=== PATIENT | female | born 1965 | race Caucasian/White ===

== ENCOUNTER 2019-02-26 00:40 | Observation (INO) ==
[2019-02-26] MEDS ORDERED: NS 1000 ML 1,000 ML ONE ×3 (00:48→03:36)
[2019-02-26] MEDS ORDERED: ZOFRAN INJ 4 MG VIAL ONE ×2 (00:49→16:18)
[2019-02-26] MEDS ORDERED: NS 1000 ML 1,000 ML IV ONE ×2 (00:59→02:27)
[2019-02-26] MEDS ORDERED: ZOFRAN INJ 4 MG VIAL IVP ONE ×2 (00:59→02:42)
[2019-02-26 01:20] LABS: BASOPHILS % (AUTO) 0.4 % (0.2-1.0); EOSINOPHILS % (AUTO) 0.5 % (0.9-2.9); HEMATOCRIT 50.6 % (36.0-47.0); HEMOGLOBIN 17.2 g/dL (12.0-16.0); LYMPHOCYTES # (AUTO) 1.2 X10^3/uL (1.3-2.9); LYMPHOCYTES % (AUTO) 20.5 % (21.0-51.0); MEAN CORPUSCULAR HEMOGLOBIN 29.3 pg (27.0-34.0); MEAN CORPUSCULAR VOLUME 86.3 fL (80.0-100.0); MEAN PLATELET VOLUME 8.4 fL (7.4-11.0); MONOCYTES # (AUTO) 0.7 x10^3/uL (0.3-0.8); MONOCYTES % (AUTO) 11.8 % (0.0-13.0); NEUTROPHILS # (AUTO) 3.9 x10^3/uL (2.2-4.8); NEUTROPHILS % (AUTO) 66.8 % (42.0-75.0); PLATELET COUNT 343 X10^3/uL (150.0-450.0); RED BLOOD COUNT 5.87 X10^6/uL (3.5-5.4); RED CELL DISTRIBUTION WIDTH 13.8 % (11.6-16.5); WHITE BLOOD COUNT 5.8 X10^3/uL (3.6-10.0)
[2019-02-26 01:39] LABS: BLOOD UREA NITROGEN 56 mg/dL (7-18); CALCIUM 10.7 mg/dL (8.5-10.1); CHLORIDE 92 mmol/L (98-107); COR NA(FOR HYPERGLY) 132 mmol/L (136-145); CREATININE 2.05 mg/dL (0.55-1.02); SODIUM 132 mmol/L (136-145); TROPONIN I < 0.02 ng/mL (0-1.5); eGFR NON BLACK RACES 27 (>60)
[2019-02-26 01:44] LABS: ALANINE AMINOTRANSFERASE 33 Units/L (12-78); ALBUMIN 4.5 g/dL (3.4-5.0); ALKALINE PHOSPHATASE 110 Units/L (46-116); ASPARTATE AMINO TRANSFERASE 38 Units/L (15-37); CKMB % 0.9 % (<4); CREATINE KINASE 379 Units/L (26-192); CREATINE KINASE MB 3.4 ng/mL (0-4.0); TOTAL PROTEIN 9.6 g/dL (6.4-8.2)
[2019-02-26 01:46] VITALS: BMI 22.3
--- NOTE | 2019-02-26 02:41 | DR.NAUSEAF ---
HPI Time Seen Time Seen by Provider: 02/26/19 02:19 Primary Care Physician Primary Care Physician: CRISTIAN HPI Comment HPI Comment: Patient presents with complaint of vomiting and diarrhea for four days. She admits to abdominal pain. Denies fever. Complaints Chief Complaint Doctors Comments: vomiting and diarrhea Chief Complaint:: N/V/D O/S SATURDAY, INT. SUBSTERNAL CHEST PAIN. WEAK, AND CRAMPING. Source History Provided: Patient Mode of Arrival Mode of Arrival: Ambulatory Timing Onset of Chief Complaint: 02/22/19 PMH PMH Past Medical History: Yes Past Medical History: Depression, Dyslipidemia and Hypertension Past Surgical History: Yes Surgical History: Appendectomy and Ortho Surgery Family History History of Family Medical Conditions: Yes Family Medical History: Coronary Artery Disease Social History Does patient currently use any type of tobacco product: Yes Have you used tobacco products in the last 12 months: Yes Type of Tobacco Use: Cigarettes Does any household member use tobacco: Yes Alcohol Use: None Do you use any recreational Drugs:: No Lives With: Family Lives Where: Home infectious screening In the last 2 months have you had wt loss of >10#?: NO Have you had fever, night sweats or hemotysis?: No Have you traveled outside the country in the last 6 months?: No Isolation: Standard ROS Review of Systems Constitutional: No Symptoms Reported Eyes: No Symptoms Reported ENTM: No Symptoms Reported Respiratoy: No Symptoms Reported Cardiovascular: No Symptoms Reported Neurological: No Symptoms Reported Musculoskeletal: No Symptoms Reported Integumentary: No Symptoms Reported Hematologic/Lymphatic: No Symptoms Reported Endocrine: No Symptoms Reported Psychiatric: No Symptoms Reported All Other Systems: Reviewed and Negative PE Vital Signs Vitals: Temperature 98.5 F Pulse Rate [Left] 90 Pulse Rate 92 Respiratory Rate 18 Blood Pressure [Right Arm] 136/73 Blood Pressure 129/57 O2 Sat by Pulse Oximetry 96 General Limitations: No Limitations General Appearance: Alert and In No Apparent Distress Head Head Exam: Normal Inspection, Atraumatic and Normocephalic Eyes Eye exam: Normal Appearance, PERRL and EOMI ENT ENT Exam: Normal Exam and Normal Oropharynx Neck Neck Exam: Normal Inspection, Full ROM and Trachea Midline Chest Chest Inspection: Normal Inspection and Symmetric Chest Wall Rise Respiratory Respiratory Exam: Normal Lung Sounds Bilat Respiratory Exam: Bilateral: Clear to Auscultation Cardiovascular Cardiovascular Exam: Regular Rate and Normal Rhythm Abdominal Exam Abdominal Exam: Normal Inspection, Normal Bowel Sounds and Soft Abdominal Tenderness: RUQ, RLQ and LUQ Rectal Rectal Exam: Deferred and Normal Inspection External Exam: Female: Deferred : Bimanual Exam (female): Deferred Extremities Extremities Exam: Normal Inspection and Full ROM Back Back Exam: Normal Inspection and Full ROM Neurologic Neurological Exam: Alert, Oriented X3 and CN II-XII Intact Psychiatric Psychiatric Exam: Normal Affect and Normal Mood Skin Skin Exam: Warm, Dry and Intact COURSE Consultation Called: 03:15 Consultation Comments: Dr. Mendieta agreed to admit for further treatment and evaluation ROR Labs Reviewed Laboratory Results Reviewed?: Yes Result Diagrams: 02/26/19 00:56 02/26/19 00:56 Laboratory: WBC 5.8 X10^3/uL (3.6-10.0) 02/26/19 00:56 RBC 5.87 X10^6/uL (3.5-5.4) H 02/26/19 00:56 Hgb 17.2 g/dL (12.0-16.0) H 02/26/19 00:56 Hct 50.6 % (36.0-47.0) H 02/26/19 00:56 MCV 86.3 fL (80.0-100.0) 02/26/19 00:56 MCH 29.3 pg (27.0-34.0) 02/26/19 00:56 MCHC 34.0 g/dL (33.0-35.0) 02/26/19 00:56 RDW 13.8 % (11.6-16.5) 02/26/19 00:56 Plt Count 343 X10^3/uL (150.0-450.0) 02/26/19 00:56 MPV 8.4 fL (7.4-11.0) 02/26/19 00:56 Neut % (Auto) 66.8 % (42.0-75.0) 02/26/19 00:56 Lymph % (Auto) 20.5 % (21.0-51.0) L 02/26/19 00:56 [place] % (Auto) 11.8 % (0.0-13.0) 02/26/19 00:56 Eos % (Auto) 0.5 % (0.9-2.9) L 02/26/19 00:56 Baso % (Auto) 0.4 % (0.2-1.0) 02/26/19 00:56 Neut # (Auto) 3.9 x10^3/uL (2.2-4.8) 02/26/19 00:56 Lymph # (Auto) 1.2 X10^3/uL (1.3-2.9) L 02/26/19 00:56 [place] # (Auto) 0.7 x10^3/uL (0.3-0.8) 02/26/19 00:56 Eos # (Auto) 0.0 x10^3/uL (0.0-0.2) 02/26/19 00:56 Baso # (Auto) 0.0 X10^3/uL (0.0-0.1) 02/26/19 00:56 Absolute Nucleated RBC 0.1 /100WBC 02/26/19 00:56 Sodium 132 mmol/L (136-145) L 02/26/19 00:56 Corrected Sodium 132 mmol/L (136-145) L 02/26/19 00:56 Potassium 3.9 mmol/L (3.5-5.1) 02/26/19 00:56 Chloride 92 mmol/L (98-107) L 02/26/19 00:56 Carbon Dioxide 22.0 mmol/L (21-32) 02/26/19 00:56 BUN 56 mg/dL (7-18) H 02/26/19 00:56 Creatinine 2.05 mg/dL (0.55-1.02) H 02/26/19 00:56 Est GFR (MDRD) Af Amer 32 (>60) L 02/26/19 00:56 Est GFR (MDRD) Non-Af 27 (>60) L 02/26/19 00:56 Glucose 119 mg/dL (65-99) H 02/26/19 00:56 Calcium 10.7 mg/dL (8.5-10.1) H 02/26/19 00:56 Corrected Calcium TNP 02/26/19 00:56 Total Bilirubin 0.30 mg/dL (0.2-1.0) 02/26/19 00:56 AST 38 Units/L (15-37) H 02/26/19 00:56 ALT 33 Units/L (12-78) 02/26/19 00:56 Alkaline Phosphatase 110 Units/L (46-116) 02/26/19 00:56 Creatine Kinase 379 Units/L (26-192) H 02/26/19 00:56 CK-MB (CK-2) 3.4 ng/mL (0-4.0) 02/26/19 00:56 CK/CKMB % Calc 0.9 % (<4) 02/26/19 00:56 Troponin I < 0.02 ng/mL (0-1.5) 02/26/19 00:56 Total Protein 9.6 g/dL (6.4-8.2) H 02/26/19 00:56 Albumin 4.5 g/dL (3.4-5.0) 02/26/19 00:56 Globulin 5.1 g/dL (2.5-4.5) H 02/26/19 00:56 Albumin/Globulin Ratio 0.9 Ratio (1.1-2.1) L 02/26/19 00:56 Other Results Comments: Chest: Abnormal bowel gas pattern within the left lower quadrant small bowel and within the colon is most consistent with an acute enterocolitis. There is no evidence of obstructive bowel pattern. XRAY XRAY Interpreted by: Radiologist Diagnosis Discharge Problem: Dehydration ADDITIONAL NOTES Additional Notes Additional Notes: Patient admitted to the service of Dr. Mendieta
[2019-02-26] MEDS ORDERED: TORADOL 30 MG VIAL IVP ONE (02:42)
[2019-02-26] MEDS ORDERED: TORADOL 30 MG VIAL ONE (02:43)
[2019-02-26] MEDS ORDERED: SODIUM BICARBONATE 8.4% INJ ADULT 50 ML in NS 250 ML IV 250 ML IV ONE (02:45)
[2019-02-26] MEDS ORDERED: NS 1000 ML 1,000 ML with SODIUM BICARBONATE 8.4% INJ ADULT 50 ML IV ONE ×2 (03:26)
[2019-02-26] MEDS ORDERED: SODIUM BICARBONATE 8.4% INJ ADULT ONE ×2 (03:36→03:39)
--- NOTE | 2019-02-26 03:45 | RAD ---
KUB Indication:cramping Comparison: 09/23/2014 Findings: Increased gaseous and fluid distention the left lower quadrant loops of small bowel and colon, additionally there is loss of normal haustral folds within loops of left lower quadrant colon. No free air or pneumatosis. No pathological soft tissue mass or calcification can be observed. The bony structures are grossly intact. IMPRESSION: Abnormal bowel gas pattern within the left lower quadrant small bowel and within the colon is most consistent with an acute enterocolitis. There is no evidence of obstructive bowel gas pattern. Reported By:
[2019-02-26] MEDS ORDERED: PREVNAR 13 IM ONE (05:05)
[2019-02-26] MEDS ORDERED: FLAGYL IV PREMIX 500 MG BAG 500 MG/100 ML BAG IV SCH ×2 (06:00→09:00)
[2019-02-26 06:10] LABS: BASOPHILS % (AUTO) 0.5 % (0.2-1.0); EOSINOPHILS % (AUTO) 0.8 % (0.9-2.9); HEMATOCRIT 41.4 % (36.0-47.0); HEMOGLOBIN 13.6 g/dL (12.0-16.0); LYMPHOCYTES # (AUTO) 0.7 X10^3/uL (1.3-2.9); LYMPHOCYTES % (AUTO) 11.6 % (21.0-51.0); MEAN CORPUSCULAR HEMOGLOBIN 28.5 pg (27.0-34.0); MEAN CORPUSCULAR HGB CONC 32.9 g/dL (33.0-35.0); MEAN CORPUSCULAR VOLUME 86.8 fL (80.0-100.0); MEAN PLATELET VOLUME 8.1 fL (7.4-11.0); MONOCYTES # (AUTO) 0.6 x10^3/uL (0.3-0.8); MONOCYTES % (AUTO) 10.3 % (0.0-13.0); NEUTROPHILS # (AUTO) 4.7 x10^3/uL (2.2-4.8); NEUTROPHILS % (AUTO) 76.8 % (42.0-75.0); PLATELET COUNT 275 X10^3/uL (150.0-450.0); RED BLOOD COUNT 4.77 X10^6/uL (3.5-5.4); RED CELL DISTRIBUTION WIDTH 13.4 % (11.6-16.5); WHITE BLOOD COUNT 6.2 X10^3/uL (3.6-10.0)
[2019-02-26] MEDS: FLAGYL IV PREMIX 500 MG BAG 500 MG/100 ML BAG IV SCH ×3 (06:16→20:49)
[2019-02-26] MEDS: NS 1000 ML 1,000 ML IV SCH (06:16)
[2019-02-26 06:18] LABS: ALANINE AMINOTRANSFERASE 24 Units/L (12-78); ALBUMIN 3.1 g/dL (3.4-5.0); ALKALINE PHOSPHATASE 76 Units/L (46-116); ASPARTATE AMINO TRANSFERASE 27 Units/L (15-37); BLOOD UREA NITROGEN 49 mg/dL (7-18); CALCIUM 8.4 mg/dL (8.5-10.1); CARBON DIOXIDE 21.3 mmol/L (21-32); CHLORIDE 104 mmol/L (98-107); COR CA(FOR HYPOALB) 9.1 mg/dL (8.5-10.1); SODIUM 138 mmol/L (136-145); TOTAL PROTEIN 6.8 g/dL (6.4-8.2); eGFR NON BLACK RACES 41 (>60)
[2019-02-26] MEDS ORDERED: NICOTINE PATCH ONE (06:43)
[2019-02-26] MEDS ORDERED: K-RIDER 10 MEQ/NS 100 ML 10 MEQ/100 ML BAG IV PRN (08:07)
[2019-02-26] MEDS ORDERED: KLOR-CON PO PRN (08:07)
[2019-02-26] MEDS ORDERED: POTASSIUM CHL 60 MEQ/NS 0.45% 500 ML IV PRN (08:07)
[2019-02-26] MEDS ORDERED: MICRO K EXTEN CAP 10 MEQ PO PRN (08:07)
[2019-02-26] MEDS ORDERED: K-DUR TAB 20 MEQ PO PRN (08:07)
[2019-02-26] MEDS ORDERED: POTASSIUM CHL 40 MEQ/NS 0.45% 500 ML IV PRN (08:07)
[2019-02-26] MEDS: NICOTINE PATCH TD SCH (08:31)
[2019-02-26] MEDS: CIPRO IV 400 MG PREMIX* 400 MG/200 ML IV.SOLN. IV SCH ×2 (08:31→20:49)
[2019-02-26] MEDS ORDERED: CIPRO IV 400 MG PREMIX* 400 MG/200 ML IV.SOLN. IV SCH (09:00)
[2019-02-26] MEDS ORDERED: MICRO K EXTEN CAP 10 MEQ PO ONE (10:54)
[2019-02-26] MEDS: ZANAFLEX PO SCH ×2 (12:54→20:48)
[2019-02-26] MEDS: PAXIL PO SCH (13:10)
[2019-02-26 13:29] LABS: STOOL FOR WBC POSITIVE (NEGATIVE)
[2019-02-26 13:49] LABS: CRYPTOSPORIDIUM PARVUM ANTIGEN NEGATIVE (NEGATIVE); GIARDIA LAMBLIA ANTIGEN NEGATIVE (NEGATIVE)
[2019-02-26] MEDS: POTASSIUM CHLORIDE LIQ 20 MEQ UDC PO PRN ×2 (15:22→20:49)
[2019-02-26] MEDS ORDERED: ZOFRAN INJ 4 MG VIAL IVP PRN (16:08)
--- NOTE | 2019-02-26 16:58 | DR.H&P ---
H&P - History & Physical for Day of: H&P Date: 02/26/19 - Chief Complaint Chief Complaint: NAUSEA, VOMITING, DIARRHEA, ABDOMINAL PAIN - History of Present Illness History of Present Illness: IS A 53 YEAR OLD PATIENT OF OURS. SHE PRES ENTED TO THE ER WITH COMPLAINTS OF NAUSEA, VOMITING, AND DIARRHEA X 4 DAYS. SHE ALSO REPORTS ABDOMINAL PAIN AND CRAMPING. SHE DENIES FEVER. A FAMILY MEMBER THAT LIVES IN THE HOME WITH HER WAS JUST RECENTLY DIAGNOSED WITH C.DIFF. ON ARRIVAL, VITALS WERE 97.6-124-18-98%-117/85. LABS WERE OBTAINED. ABNORMAL LAB VALUES INCLUDE THE FOLLOWING: RBC 5.87, HGB 17.2, HCT 50.6, SODIUM 132, CHLORIDE 92, BUN 56, CREATININE 2.05, GLUCOSE 119, AST 38, CREATINE KINASE 379, TOTAL PROTEIN 9.6, GLOBULIN 5.1. BLOOD CULTURES PENDING. AN EKG WAS OBTIANED AND REVEALED: SINUS TACHYCARDIA. A KUB WAS OBTAINED AND REVEALED: Abnormal bowel gas pattern within the left lower quadrant small bowel and within the colon is most consistent with an acute enterocolitis. There is no evidence of obstructive bowel gas pattern. SHE WAS GIVEN A NORMAL SALINE BOLUS X 2, TORADOL 30MG IV X 1, AND ZOFRAN 4MG IV X 1. SHE WAS ADMITTED FOR FURTHER EVALUATION AND TREATMENT OF DEHYDRATION AND ACUTE ENTERITIS. SHE WAS STARTED ON NORMAL SALINE AT 125ML/HR, CIPRO 400MG IV Q12H, AND FLAGYL 500MG IV Q6H. WE WILL OBTAIN STOOL STUDIES TODAY. OTHERWISE, WE WILL FOLLOW UP WITH AM LABS AND CONTINUE TO MONITOR. - Past Medical History Past Medical History: Hypertension, Dyslipidemia, Depression - Past Surgical History Surgical History: Appendectomy, Ortho Surgery - Family History Family Medical History: Coronary Artery Disease - Social History Does patient currently use any type of tobacco product: Yes Have you used tobacco products in the last 12 months: Yes Type of Tobacco Use: Cigarettes How many years tobacco product used: 30 Does any household member use tobacco: Yes Alcohol Use: None Drug Use: None - Medications Home Medications: Penicillins Allergy (Verified 02/26/19 01:46) CONTINUE taking the following medications gabapentin [Neurontin] 100 mg PO BID 02/26/19 [History] losartan 25 mg PO HS 02/26/19 [History] paroxetine HCl [Paxil] 30 mg PO QDAY 02/26/19 [History] rosuvastatin [Crestor] 10 mg PO HS 02/26/19 [History] tizanidine [Zanaflex] 4 mg PO QHS 02/26/19 [History] - Review of Systems Constitutional: Weakness. denies: Fever Eyes: No Symptoms Reported ENT: No Symptoms Reported Respiratory: No Symptoms Reported Cardiovascular: Chest Pain Gastrointestinal: See HPI, Nausea, Vomiting, Abdominal Pain, Diarrhea Genitourinary: No Symptoms Reported Musculoskeletal: No Symptoms Reported Skin: No Symptoms Reported Neurological: Weakness - Physical Exam Vital Signs: Temperature 98.2 F Pulse Rate [Left] 90 Pulse Rate 85 Respiratory Rate 18 Blood Pressure [Right Arm] 136/73 Blood Pressure 120/65 O2 Sat by Pulse Oximetry 96 Oriented: Normal Eyes: Normal Ear: Normal Nose: Normal Throat: Normal Respiratory: Diminished Throughout Cardiovascular: Tachycardia. negative: S3, S4, Murmur : Normal Auscultation: Bowel Sounds: Normal Palpation: Normal Tenderness: Normal Skin: Normal Musculoskeletal: Normal Psychiatric: Normal Mood Description: Calm Affect: Normal Speech Pattern: Clear - Assessment/Plan (1) Enterocolitis Status: Acute Plan: NORMAL SALINE AT 125ML/HR, IV CIPRO, IV FLAGYL, OBTAIN STOOL STUDIES, CONTINUE TO MONITOR (2) Dehydration Status: Acute Plan: NORMAL SALINE AT 125ML/HR, CONTINUE TO MONITOR (3) Chest pain Qualifiers: Chest pain type: unspecified Qualified Code(s): R07.9 - Chest pain, unspecified Status: Acute Plan: SERIAL CARDIAC ENZYMES AND EKG, CONTINUE TO MONITOR - Allergies Allergies/Adverse Reactions: Allergies Allergy/AdvReac Type Severity Reaction Status Date / Time Penicillins Allergy Verified 02/26/19 01:46
[2019-02-26] MEDS: NEURONTIN CAP 100 MG PO SCH (20:49)
[2019-02-26] MEDS ORDERED: CRESTOR TAB 10 MG PO SCH (21:00)
[2019-02-27] MEDS: NS 1000 ML 1,000 ML IV SCH ×2 (00:19→05:00)
[2019-02-27] MEDS: FLAGYL IV PREMIX 500 MG BAG 500 MG/100 ML BAG IV SCH ×2 (03:15→08:07)
[2019-02-27 05:39] LABS: BASOPHILS % (AUTO) 0.5 % (0.2-1.0); EOSINOPHILS # (AUTO) 0.1 x10^3/uL (0.0-0.2); EOSINOPHILS % (AUTO) 2.3 % (0.9-2.9); HEMATOCRIT 36.5 % (36.0-47.0); LYMPHOCYTES # (AUTO) 1.1 X10^3/uL (1.3-2.9); MEAN CORPUSCULAR HGB CONC 32.9 g/dL (33.0-35.0); MEAN PLATELET VOLUME 8.7 fL (7.4-11.0); MONOCYTES # (AUTO) 0.7 x10^3/uL (0.3-0.8); MONOCYTES % (AUTO) 15.8 % (0.0-13.0); NEUTROPHILS # (AUTO) 2.4 x10^3/uL (2.2-4.8); NEUTROPHILS % (AUTO) 55.4 % (42.0-75.0); PLATELET COUNT 227 X10^3/uL (150.0-450.0); RED BLOOD COUNT 4.14 X10^6/uL (3.5-5.4); RED CELL DISTRIBUTION WIDTH 13.5 % (11.6-16.5); WHITE BLOOD COUNT 4.3 X10^3/uL (3.6-10.0)
[2019-02-27 06:02] LABS: ALANINE AMINOTRANSFERASE 25 Units/L (12-78); ALKALINE PHOSPHATASE 68 Units/L (46-116); ASPARTATE AMINO TRANSFERASE 27 Units/L (15-37); BLOOD UREA NITROGEN 24 mg/dL (7-18); CALCIUM 8.6 mg/dL (8.5-10.1); CARBON DIOXIDE 22.5 mmol/L (21-32); CHLORIDE 106 mmol/L (98-107); COR CA(FOR HYPOALB) 9.4 mg/dL (8.5-10.1); CREATININE 0.94 mg/dL (0.55-1.02); SODIUM 138 mmol/L (136-145); TOTAL PROTEIN 6.5 g/dL (6.4-8.2); eGFR NON BLACK RACES > 60 (>60)
[2019-02-27] MEDS ORDERED: K-LYTE EFFERVESCENT PO ONE (07:24)
[2019-02-27] MEDS: CIPRO IV 400 MG PREMIX* 400 MG/200 ML IV.SOLN. IV SCH (08:07)
[2019-02-27] MEDS: NEURONTIN CAP 100 MG PO SCH (08:08)
[2019-02-27] MEDS: NICOTINE PATCH TD SCH (08:08)
[2019-02-27] MEDS: PAXIL PO SCH (08:08)
[2019-02-27 08:21] VITALS: BP 111/58
--- NOTE | 2019-02-27 09:13 | RAD ---
HISTORY: Abdominal pain. Nausea. Diarrhea. Study: KUB Comparison: 530 2019 Findings: Scattered large and small bowel gas is present. There is a small to moderate amount of small bowel gas in nondistended loops in the left ernst abdomen. This could be a focal ileus. A moderate amount of colonic gas is noted. Gas is noted in the region of the rectum. No abnormal calcifications are seen to overlie the renal shadows. Small calcifications are present in the anatomic pelvis. These most likely are phleboliths. Distal ureteral calculi cannot be excluded. Clinical correlation is recommended. Minimal lumbar spondylosis is noted. No acute bony abnormalities are identified. IMPRESSION: 1. Nonspecific bowel gas pattern with several loops of nondistended small bowel predominating in the left ernst abdomen. This could be due to a focal ileus. Continued clinical follow-up is recommended. CT scan may be of assistance if clinically indicated. Reported By:
[2019-02-27] MEDS ORDERED: PREVNAR 13 IM ONE (10:28)
== END 2019-02-27 10:54 | disposition home or self-care (01) ==
LOC: ICU 00:41 → ER 00:41 → ICU 04:28
PROVIDERS: ADMIT Internal Medicine; ATTEND Internal Medicine
DX: Z79.899 Other long term (current) drug therapy; R11.2 Nausea with vomiting, unspecified; F32.89 Other specified depressive episodes; R19.7 Diarrhea, unspecified; R10.84 Generalized abdominal pain; I10 Essential (primary) hypertension; E78.2 Mixed hyperlipidemia; K52.89 Other specified noninfective gastroenteritis and colitis; R94.31 Abnormal electrocardiogram [ECG] [EKG]; R94.4 Abnormal results of kidney function studies; K92.1 Melena; E86.0 Dehydration; Z23 Encounter for immunization
CPT/HCPCS: 36415; 36600; 74000; 74018; 80053; 82270; 82550; 82553; 83630; 83735; 84132; 84484; 85025; 87040; 87045; 87328; 87329; 87427; 87449; 87493; 87899; 93005; 96365; 96367; 96374; 96375; 99284; A4216; A4222; S0030; 90670; G0378; J0744; J1885; J2405; J3480; J3490; J7030; J8499